=== PATIENT | male | born 1990 | race Caucasian/White ===

== ENCOUNTER 2018-01-31 09:01 | Emergency (ER) | payer OTHER ==
[~2018-01-31] VITALS: Ht 180.3 cm; Wt 108.1 kg
[2018-01-31 09:03] VITALS: TEMP 36.5; Ht 180.3 cm; Wt 108.1 kg
[2018-01-31] MEDS ORDERED: ONDANSETRON INJ 2 MG/ML 2 ML VIAL IV STA (09:20)
[2018-01-31] MEDS ORDERED: KETOROLAC TROMETHAMINE 30 MG/ML VIAL IV STA (09:20)
[2018-01-31] MEDS ORDERED: SODIUM CHLORIDE 0.9% 1000ML 1,000 ML IV STA (09:20)
[2018-01-31 09:38] LABS: BASO % 0.5 %; BASO ABS # 0.03 K/uL (0-0.2); EOS % 1.4 %; EOS ABS # 0.08 K/uL (0-0.5); HEMATOCRIT 43.3 % (42-52); HEMOGLOBIN 14.8 g/dL (14.0-18.0); IG# 0.02 K/uL (0.00-0.02); LYMPH % 25.1 %; LYMPH ABS # 1.47 K/uL (1.2-3.4); MEAN CELL VOLUME 82.8 fL (80-100); MEAN CORPUSCULAR HEMOGLOBIN 28.3 pg (25-34); MEAN CORPUSCULAR HGB CONC 34.2 g/dl (32-36); MONO % 8.2 %; MONO ABS # 0.48 K/uL (0.11-0.59); NEUT % 64.5 %; NEUT ABS # 3.77 K/uL (1.4-6.5); PLATELET COUNT 194 K/uL (130-400); RED CELL DISTRIBUTION WIDTH CV 12.9 % (11.5-14.5); WHITE BLOOD COUNT 5.85 K/uL (4.8-10.8)
[2018-01-31 09:47] LABS: ALBUMIN 4.1 gm/dl (3.4-5.0); CALCIUM 8.7 mg/dl (8.5-10.1); CREATININE 1.14 mg/dl (0.60-1.40); POTASSIUM 3.8 mmol/L (3.5-5.1)
[2018-01-31 09:50] LABS: TOTAL PROTEIN 7.8 gm/dl (6.4-8.2)
--- NOTE | 2018-01-31 10:42 | DIAGNOSTIC IMAGING REPORT ---
KUB CLINICAL HISTORY: l flank pain hxt stones nephrocalcinosis COMPARISON STUDY: No previous studies for comparison. FINDINGS: The soft tissues, psoas shadows, renal outlines and intestinal gas pattern appear normal. There is no evidence for bowel obstruction. No abnormal abdominal calcifications are seen. The kidneys and urinary tracts are affectively obscured by overlying bowel content. IMPRESSION: Nondiagnostic study of the urinary tracts due to overlying bowel content and air The above report was generated using voice recognition software. It may contain grammatical, syntax or spelling errors. Electronically signed by: Ronny Back M.D. 01/31/2018 10:40 AM Dictated Date/Time: 01/31/2018 10:39 AM
--- NOTE | 2018-01-31 10:52 | DIAGNOSTIC IMAGING REPORT ---
ULTRASOUND KIDNEYS AND BLADDER CLINICAL HISTORY: Left flank pain. COMPARISON STUDY: Abdominal CT dated 08/17/2014. TECHNIQUE: Real-time, grayscale, and color flow sonography of the kidneys and bladder is performed. Images are reviewed in the transverse and longitudinal planes. FINDINGS: Kidneys: The kidneys are normal in size and echotexture. The right kidney measures 10.9 cm in length and the left kidney measures 12.3 cm in length. There is mild to moderate left-sided hydronephrosis. No hydronephrosis is seen on the right. A nonobstructing calculus is suggested in the left lower pole. No shadowing calculi are seen on the right. There is no sonographic evidence of contour deforming renal mass lesion. No perinephric fluid is identified. Bladder: The bladder is normal in appearance. A 6 mm obstructing calculus is seen at the left vesicoureteral junction. Both ureteral jets were. Upper abdomen: Survey images of the liver show evidence of hepatomegaly and hepatic steatosis. IMPRESSION: 1. The kidneys are normal in size. 2. There is mild to moderate left hydroureteronephrosis. An obstructing calculus is seen at the left vesicoureteral junction. 3. An additional nonobstructing stone is suggested in the left lower pole. Electronically signed by: Amanuel Cornejo M.D. 01/31/2018 10:50 AM Dictated Date/Time: 01/31/2018 10:48 AM
[2018-01-31 10:55] VITALS: BP 150/90; PULSE 73; O2SAT 100
[2018-01-31] MEDS ORDERED: TAMS0.4C38 PO (11:26)
[2018-01-31] MEDS ORDERED: OXYC1TAB3 PO (11:26)
--- NOTE | 2018-01-31 13:38 | EMERGENCY ROOM VISIT NOTE ---
History Report prepared by Yudy: Reid Ozuna Under the Supervision of: Dr. Luther Simms D.O. First contact with patient: 09:08 Chief Complaint: KIDNEY STONE Stated Complaint: ABD PAIN,NAUSEA,HEMATURIA History of Present Illness The patient is a 27 year old male who presents to the Emergency Room with complaints of pain in the left flank and left lower abdominal quadrant that began at 0630, 3 hours ago. The patient states that his pain began as a "dull ache" and progressively worsened to a 5/10 in severity. No exacerbating or remitting factors. He has had this once before and felt extremely consistent with his previous kidney stones. Upon arrival to the ED the patient notes that his discomfort suddenly resolved, and now he only feels a "soreness." He also noticed some blood in the urine this morning, and is currently nauseous but has not vomited. No fevers. He denies any chest pain, shortness of breath, does admit to some nausea. Source of History: patient Onset: 3 hours [place] [place] Position: abdomen (LLQ), back (Left Flank) Symptom Intensity: 5/10 at worst Quality: ache, dull Timing: resolved Associated Symptoms: + nausea, No vomiting Review of Systems See HPI for pertinent positives & negatives. A total of 10 systems reviewed and were otherwise negative. Past Medical & Surgical Medical Problems: (1) Concussion W/O Coma (2) Otalgia Nos Family History Diabetes mellitus Social History Smoking Status: Never Smoker Occupation Status: employed Current/Historical Medications Scheduled Tamsulosin Hcl (Flomax), 0.4 MG PO DAILY Scheduled PRN Oxycodone Immediate Rel Tab (Roxicodone Ir), 5 MG PO Q6H PRN for Pain Allergies Coded Allergies: Penicillins (Verified Allergy, Unknown, 01/31/18) Physical Exam Vital Signs Date Time Temp Pulse Resp B/P (MAP) Pulse Ox O2 Delivery O2 Flow Rate FiO2 01/31/18 10:55 73 16 150/90 100 Room Air 01/31/18 09:03 36.5 86 18 155/100 99 Room Air Physical Exam GENERAL: Sitting up in bed, alert, well appearing, well nourished, no distress, non-toxic EYE EXAM: normal conjunctiva. OROPHARYNX: no exudate, no erythema, lips, buccal mucosa, and tongue normal and mucous membranes are moist NECK: supple, no nuchal rigidity, no adenopathy, non-tender LUNGS: Clear to auscultation. Normal chest wall mechanics HEART: no murmurs, S1 normal and S2 normal ABDOMEN: abdomen soft, non-tender, normo-active bowel sounds, no masses, no rebound or guarding. BACK: Back is symmetrical on inspection and there is no deformity, no midline tenderness, no CVA tenderness. SKIN: no rashes and no bruising UPPER EXTREMITIES: upper extremities are grossly normal. LOWER EXTREMITIES: No pitting edema. NEURO EXAM: Normal sensorium, cranial nerves II-XII grossly intact, normal speech, no gross weakness of arms, no gross weakness of legs. Medical Decision & Procedures ER Provider Diagnostic Interpretation: Radiology results as stated below per my review and the radiologist's interpretation: KUB CLINICAL HISTORY: l flank pain hxt stones nephrocalcinosis COMPARISON STUDY: No previous studies for comparison. FINDINGS: The soft tissues, psoas shadows, renal outlines and intestinal gas pattern appear normal. There is no evidence for bowel obstruction. No abnormal abdominal calcifications are seen. The kidneys and urinary tracts are affectively obscured by overlying bowel content. IMPRESSION: Nondiagnostic study of the urinary tracts due to overlying bowel content and air The above report was generated using voice recognition software. It may contain grammatical, syntax or spelling errors. Electronically signed by: Ronny Back M.D. 01/31/2018 10:40 AM Dictated Date/Time: 01/31/2018 10:39 AM ULTRASOUND KIDNEYS AND BLADDER CLINICAL HISTORY: Left flank pain. COMPARISON STUDY: Abdominal CT dated 08/17/2014. TECHNIQUE: Real-time, grayscale, and color flow sonography of the kidneys and bladder is performed. Images are reviewed in the transverse and longitudinal planes. FINDINGS: Kidneys: The kidneys are normal in size and echotexture. The right kidney measures 10.9 cm in length and the left kidney measures 12.3 cm in length. There is mild to moderate left-sided hydronephrosis. No hydronephrosis is seen on the right. A nonobstructing calculus is suggested in the left lower pole. No shadowing calculi are seen on the right. There is no sonographic evidence of contour deforming renal mass lesion. No perinephric fluid is identified. Bladder: The bladder is normal in appearance. A 6 mm obstructing calculus is seen at the left vesicoureteral junction. Both ureteral jets were. Upper abdomen: Survey images of the liver show evidence of hepatomegaly and hepatic steatosis. IMPRESSION: 1. The kidneys are normal in size. 2. There is mild to moderate left hydroureteronephrosis. An obstructing calculus is seen at the left vesicoureteral junction. 3. An additional nonobstructing stone is suggested in the left lower pole. Electronically signed by: Amanuel Cornejo M.D. 01/31/2018 10:50 AM Dictated Date/Time: 01/31/2018 10:48 AM Laboratory Results 01/31/18 09:15 Red Blood Count 5.23, Mean Corpuscular Volume 82.8, Mean Corpuscular Hemoglobin 28.3, Mean Corpuscular Hemoglobin Concent 34.2, Mean Platelet Volume 11.0, Neutrophils (%) (Auto) 64.5, Lymphocytes (%) (Auto) 25.1, Monocytes (%) (Auto) 8.2, Eosinophils (%) (Auto) 1.4, Basophils (%) (Auto) 0.5, Neutrophils # (Auto) 3.77, Lymphocytes # (Auto) 1.47, Monocytes # (Auto) 0.48, Eosinophils # (Auto) 0.08, Basophils # (Auto) 0.03 01/31/18 09:15 Test 01/31/18 09:10 01/31/18 09:15 Urine Color YELLOW Urine Appearance CLEAR (CLEAR) Urine pH 7.0 (4.5-7.5) Urine Specific [place] 1.016 (1.000-1.030) Urine Protein NEG (NEG) Urine Glucose (UA) NEG (NEG) Urine Ketones NEG (NEG) Urine Occult Blood 3+ (NEG) Urine Nitrite NEG (NEG) Urine Bilirubin NEG (NEG) Urine Urobilinogen NEG (NEG) Urine Leukocyte Esterase NEG (NEG) Urine WBC (Auto) 1-5 /hpf (0-5) Urine RBC (Auto) >30 /hpf (0-4) Urine Hyaline Casts (Auto) 1-5 /lpf (0-5) Urine Epithelial Cells (Auto) 5-10 /lpf (0-5) Urine Bacteria (Auto) NEG (NEG) White Blood Count 5.85 K/uL (4.8-10.8) Red Blood Count 5.23 M/uL (4.7-6.1) Hemoglobin 14.8 g/dL (14.0-18.0) Hematocrit 43.3 % (42-52) Mean Corpuscular Volume 82.8 fL (80-100) Mean Corpuscular Hemoglobin 28.3 pg (25-34) Mean Corpuscular Hemoglobin Concent 34.2 g/dl (32-36) Platelet Count 194 K/uL (130-400) Mean Platelet Volume 11.0 fL (7.4-10.4) Neutrophils (%) (Auto) 64.5 % Lymphocytes (%) (Auto) 25.1 % Monocytes (%) (Auto) 8.2 % Eosinophils (%) (Auto) 1.4 % Basophils (%) (Auto) 0.5 % Neutrophils # (Auto) 3.77 K/uL (1.4-6.5) Lymphocytes # (Auto) 1.47 K/uL (1.2-3.4) Monocytes # (Auto) 0.48 K/uL (0.11-0.59) Eosinophils # (Auto) 0.08 K/uL (0-0.5) Basophils # (Auto) 0.03 K/uL (0-0.2) RDW Standard Deviation 39.0 fL (36.4-46.3) RDW Coefficient of Variation 12.9 % (11.5-14.5) Immature Granulocyte % (Auto) 0.3 % Immature Granulocyte # (Auto) 0.02 K/uL (0.00-0.02) Anion Gap 6.0 mmol/L (3-11) Est Creatinine Clear Calc Drug Dose 121.7 ml/min Estimated GFR () 101.6 Estimated GFR (Non- 87.7 BUN/Creatinine Ratio 9.2 (10-20) Calcium Level 8.7 mg/dl (8.5-10.1) Total Bilirubin 0.4 mg/dl (0.2-1) Direct Bilirubin 0.1 mg/dl (0-0.2) Aspartate Amino Transf (AST/SGOT) 17 U/L (15-37) Alanine Aminotransferase (ALT/SGPT) 39 U/L (12-78) Alkaline Phosphatase 74 U/L (45-117) Total Protein 7.8 gm/dl (6.4-8.2) Albumin 4.1 gm/dl (3.4-5.0) Lipase 192 U/L (73-393) Laboratory results per my review. Medications Administered Medications (Trade) Dose Ordered Sig/Denae Route Start Time Stop Time Status Last Admin Dose Admin Sodium Chloride 1,000 ml @ 999 mls/hr Q1H1M STAT IV 01/31/18 09:20 01/31/18 10:20 DC 01/31/18 09:20 999 MLS/HR Ondansetron HCl (Zofran Inj) 4 mg NOW STAT IV 01/31/18 09:20 01/31/18 09:22 DC 01/31/18 09:33 4 MG Ketorolac Tromethamine (Toradol Inj) 10 mg NOW STAT IV 01/31/18 09:20 01/31/18 09:22 DC 01/31/18 09:36 10 MG ED Course ED COURSE: Vital signs were reviewed and showed hypertensive vitals. The patients medical record was reviewed The above diagnostic studies were performed and reviewed. ED treatments and interventions as stated above. 0911: The patient was evaluated in room B12B. A complete history and physical examination was performed. 0920: Ordered Toradol 10 mg IV, Zofran 4 mg IV, Sodium Chloride 1000 mL @ 999 mL /hr IV. 1129: Upon reevaluation, the patient is resting in bed.I discussed my findings with the patient and he understands and agrees with the treatment plan. Based on the patients age, coexisting illnesses, exam and lab findings the decision to treat as an outpatient was made. The patient remained stable while under my care. The patient appeared well at the time of discharge. Medical Decision Differential diagnosis: Etiologies such as renal colic, appendicitis, diverticulitis, mesenteric ischemia, aortic pathology, infections, inflammatory bowel disease, PUD, biliary pathology, UTI, as well as others were entertained. Patient is a 27-year-old male who presents the ER for left flank pain radiating into his left lower abdomen. Patient does have a history of kidney stones. CBC along with BMP, LFTs, bilirubin lipase was normal. UA with hematuria. No signs of infection. Ultrasound shows a stone at the left UVJ with mild hydronephrosis. Pain was controlled with Toradol. He was given fluids. He was also given Zofran. He felt significant better. He was discharged follow- up with urology as an outpatient. He was given OxyIR and Flomax. Discussed with Pt concerning signs and symptoms to watch out for. Pt was instructed to follow up with their PCP and discussed with the patient their option to return to the ED at anytime for persistent or worsening symptoms. The appropriate anticipatory guidance and out-patient management, including indications for return to the emergency department, were explained at length to the patient and understood. Medication Reconcilliation Current Medication List: was personally reviewed by me Blood Pressure Screening Patient's blood pressure: Elevated blood pressure Impression Primary Impression: Hydronephrosis Additional Impressions: Renal colic Hematuria Scribe Attestation The scribe's documentation has been prepared under my direction and personally reviewed by me in its entirety. I confirm that the note above accurately reflects all work, treatment, procedures, and medical decision making performed by me. Departure Information Dispostion Home / Self-Care Prescriptions Tamsulosin Hcl (FLOMAX) 0.4 Mg Cap 0.4 MG PO DAILY, #10 CAP Prov: Luther Simms, DO 01/31/18 Oxycodone Immediate Rel Tab (ROXICODONE IR) 5 Mg Tab 5 MG PO Q6H Y for Pain, #10 TAB Prov: Luther Simms, DO 01/31/18 Referrals No Doctor, Assigned (PCP) Forms HOME CARE DOCUMENTATION FORM, IMPORTANT VISIT INFORMATION Patient Instructions My [facility] Additional Instructions Please follow up with your primary care doctor with in the next 24 hours. Any worsening of your symptoms, please return to the ED immediately. This includes any fevers greater than 100.4, worsening pain, chest pain, shortness breath, persistent nausea, vomiting, unable to eat or drink, or any other concerning signs or symptoms from your standpoint. You were given medications during this visit that will inhibit your ability to drive, operate machinery and work. Please do NOT drive, operate machinery or work for the next 12hrs. You were also given a prescription for a narcotic. While taking this medication you should also not drive, operate machinery and or work. Please follow-up with urology as listed below within the next week. Again any fevers greater than 100.4 while having this pain you need to return immediately to the ER. Problem Qualifiers Primary Impression: Hydronephrosis Hydronephrosis type: unspecified Qualified Codes: N13.30 - Unspecified hydronephrosis Additional Impressions: Hematuria Hematuria type: unspecified type Qualified Codes: R31.9 - Hematuria, unspecified
== END 2018-01-31 11:38 | disposition home or self-care (01) ==
LOC: C.EDB 09:03
DX: N13.2 Hydronephrosis with renal and ureteral calculous obstruction (principal); N23 Unspecified renal colic; Z87.442 Personal history of urinary calculi; Z83.3 Family history of diabetes mellitus; Z88.0 Allergy status to penicillin

== ENCOUNTER 2018-02-15 22:04 | Emergency (ER) | payer OTHER ==
[~2018-02-15] VITALS: Ht 180.3 cm; Wt 95.1 kg
[~2018-02-15 22:04] MED LIST: OXYC1TAB3 PO
[2018-02-15 22:06] VITALS: TEMP 36.7; Ht 180.3 cm; Wt 95.1 kg
[2018-02-15] MEDS ORDERED: IBUPROFEN 200 MG TAB PO STA (22:29)
[2018-02-15] MEDS ORDERED: OXYMETAZOLINE HCL 0.05% NA SPR 15 ML BTL NAE ONE (22:30)
--- NOTE | 2018-02-15 22:30 | EMERGENCY ROOM VISIT NOTE ---
History Report prepared by Yudy: Swathi Fernandes Under the Supervision of: Dr. Chelsey Vela M.D. First contact with patient: 22:14 Chief Complaint: EAR PAIN Stated Complaint: EAR PAIN SORE THROAT DIFFICULTY History of Present Illness The patient is a 27 year old male who presents to the Emergency Room with complaints of constant right ear pain beginning 2 days ago. The patient reports having a sorethroat and states that it hurts to swallow. He denies having a fever. He states that his symptoms have been exacerbated due to seasonal allergies. He reports that he took Tylenol which slightly alleviated his pain. The patient reports a past medical history of kidney stones and ear infections but otherwise no other medical problems. He states that he takes Kailey for his allergies. Source of History: patient Onset: 2 days ago Position: ear (right) Quality: other (pain ) Timing: constant Associated Symptoms: + sorethroat, No fevers Note: additional symptom: pain with swallowing Review of Systems See HPI for pertinent positives & negatives. A total of 6 systems reviewed and were otherwise negative. Past Medical & Surgical Medical Problems: (1) Concussion W/O Coma (2) Otalgia Nos Family History Diabetes mellitus Social History Smoking Status: Never Smoker Marital Status: single Occupation Status: employed Current/Historical Medications Scheduled Cefdinir (Omnicef), 300 MG PO Q12H Fexofenadine Hcl (Kailey Allergy), 180 MG PO DAILY Allergies Coded Allergies: Penicillins (Verified Allergy, Unknown, 01/31/18) Physical Exam Vital Signs Date Time Temp Pulse Resp B/P (MAP) Pulse Ox O2 Delivery O2 Flow Rate FiO2 02/15/18 23:26 88 18 154/97 98 02/15/18 22:06 36.7 97 18 156/92 99 Room Air Physical Exam Vital signs reviewed. General: Well-appearing male, in no significant distress. HEENT: No scleral icterus, PERRLA, neck supple. Mild erythema to the edge of the TM of the right ear. Thick post-nasal drip. Atraumatic. No significant tenderness to palpation over the maxillary or frontal sinuses Cardiovascular: Regular rate and rhythm, no extra sounds. Pulmonary: Clear to auscultation bilaterally, normal work of breathing. Abdomen: Soft, nontender, nondistended, positive bowel sounds. Musculoskeletal: Atraumatic, no peripheral edema. Neurologic: Patient awake alert and oriented x 3 Skin: Warm, dry, no rash Medical Decision & Procedures Medications Administered Medications (Trade) Dose Ordered Sig/Denae Route Start Time Stop Time Status Last Admin Dose Admin Oxymetazoline HCl (Afrin 0.05% Nasal [place]) 2 sprays NOW ONCE GREER 02/15/18 22:30 02/15/18 22:31 DC 02/15/18 22:30 2 SPRAYS Ibuprofen (Advil Tab) 200 mg NOW STAT PO 02/15/18 22:29 02/15/18 22:31 DC 02/15/18 22:29 200 MG ED Course 2223: Past medical records reviewed. The patient was evaluated in room A3. A complete history and physical examination was performed. 2228: Ordered Advil Tab 200 mg PO. 2229: Ordered Oxymetazoline HCl 2 sprays GREER. 2299: Upon reevaluation, the patient appeared to have improvement of his symptoms. He verbalized agreement of the treatment plan. He was discharged home. Medical Decision The patient is a 27 year old male who presents to the ED with complaints of right ear pain. Differentials include URI, otitis media, sinusitis, and strep pharyngitis. This patient was evaluated and appeared to be an no significant distress. Physical examination is consistent with postnasal drip. The right TM does have some mild erythema at the very edge however there is no bulging or effusion identified. Posterior oropharynx is clear other than the cobblestoning and mucus from the sinuses. Rapid strep swab was obtained and is negative. The patient was given Afrin nasal spray for his congestion. He did take 400 mg of ibuprofen prior to arrival, was given an additional 200 mg p.o. Patient has been 48 hours since the patient became ill, I suspect it is viral in etiology. The patient feels he may have a sinus infection. He was given a prescription for Omnicef to be started in 3-4 days if symptoms are not improving. He was encouraged to continue ibuprofen and decongestants such as Sudafed. He will continue Afrin as directed for 3 days. He will follow-up with his PCP and return to the ER for worsening symptoms or any medical concerns. Medication Reconcilliation Current Medication List: was personally reviewed by me Blood Pressure Screening Patient's blood pressure: Elevated blood pressure Blood pressure disposition: Elevated BP felt to be situational Impression Primary Impression: URI (upper respiratory infection) Additional Impression: Post-nasal drip Scribe Attestation The scribe's documentation has been prepared under my direction and personally reviewed by me in its entirety. I confirm that the note above accurately reflects all work, treatment, procedures, and medical decision making performed by me. Departure Information Dispostion Home / Self-Care Prescriptions Cefdinir (Omnicef) 300 Mg Cap 300 MG PO Q12H, #20 CAP Prov: Chelsey Vela M.D. 02/15/18 Referrals No Doctor, Assigned (PCP) Forms HOME CARE DOCUMENTATION FORM, IMPORTANT VISIT INFORMATION, WORK / SCHOOL INSTRUCTIONS Patient Instructions My [facility] Additional Instructions Diagnosis: URI Tylenol 650 mg every 6 hours as needed for pain, fever. Ibuprofen 600 mg every 6 hours as needed for pain, fever. Afrin nasal 2 sprays in each nostril every 12 hours as needed for congestion, 3 days only. In 3 days, if symptoms persist or worsen, fever or pain in sinuses, begin Omnicef 300 mg twice daily for 10 days. Follow up with your doctor this week for reevaluation. Return to the ED for worsening of symptoms or any medical concerns. Problem Qualifiers
[2018-02-15] MEDS ORDERED: FEXO1TAB49 PO (22:38)
[2018-02-15] MEDS ORDERED: CEFD1CAP14 PO (23:02)
[2018-02-15 23:26] VITALS: BP 154/97; PULSE 88; O2SAT 98
== END 2018-02-15 23:28 | disposition home or self-care (01) ==
LOC: C.EDB 22:05 → C.EDA 23:28
DX: J06.9 Acute upper respiratory infection, unspecified (principal); R09.82 Postnasal drip; Z87.820 Personal history of traumatic brain injury; Z88.0 Allergy status to penicillin; Z83.3 Family history of diabetes mellitus

== ENCOUNTER 2018-06-05 13:09 | Emergency (ER) | payer OTHER ==
[~2018-06-05] VITALS: Ht 180.3 cm; Wt 103.1 kg
[~2018-06-05 13:09] MED LIST changes: +CEFD1CAP14 PO; +FEXO1TAB49 PO; -OXYC1TAB3 PO
[2018-06-05 13:14] VITALS: TEMP 36.7; Ht 180.3 cm; Wt 103.1 kg
--- NOTE | 2018-06-05 14:07 | EMERGENCY ROOM VISIT NOTE ---
History First contact with patient: 13:23 Chief Complaint: CHEMICAL EXPOSURE Stated Complaint: POSSIBLE EXPOSURE TO CHEMICAL Nursing Triage Summary: pt here for testing of chemical exposure History of Present Illness The patient is a 28 year old male who presents to the Emergency Room with complaints of a possible chemical exposure that occurred today at work. 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 He was taking care of the patient in the back of an ambulance. 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 He currently denies any symptoms. Review of Systems 10 system review performed and negative unless noted in HPI or below Past Medical/Surgical History Medical Problems: (1) Concussion W/O Coma (2) Otalgia Nos Family History Diabetes mellitus Social History Smoking Status: Never Smoker Marital Status: single Occupation Status: employed Current/Historical Medications Scheduled Cefdinir (Omnicef), 300 MG PO Q12H Fexofenadine Hcl (Kailey Allergy), 180 MG PO DAILY Physical Exam Vital Signs Date Time Temp Pulse Resp B/P (MAP) Pulse Ox O2 Delivery O2 Flow Rate FiO2 06/05/18 14:17 75 18 146/96 98 Room Air 06/05/18 13:14 36.7 79 18 154/99 98 Room Air Physical Exam VITALS: Vitals are noted on the nurse's note and reviewed by myself. Vital signs stable. GENERAL: 28-year-old male, in no acute distress, nondiaphoretic, well-developed well-nourished. SKIN: The skin was without rashes, erythema, edema, or bruising. HEAD: Normocephalic atraumatic. EYES: . Conjunctivae without injection, sclerae without icterus. Extraocular movements intact. MOUTH: Mucous membranes moist. HEART: Regular rate and rhythm without murmurs gallops or rubs. LUNGS: Clear to auscultation bilaterally without wheezes, rales or rhonchi. No accessory muscle use. MUSCULOSKELETAL: No muscle atrophy, erythema, or edema noted. Strength 5/5 throughout. NEURO: Patient was alert and oriented to person place and time. Normal sensation to touch. No focal neurological deficits. Medical Decision & Procedures ED Course The patient was seen and examined They were observed for approximately 30 minutes Discharge instructions were reviewed, and they were discharged in good condition Medical Decision Differential diagnosis: Possible chemical/drug exposure This patient is a 28-year-old male that presents to the emergency department for possible drug or chemical exposure while at work. The patient has remained asymptomatic for several hours. I believe he is stable to be discharged home. He will follow-up with his PCP as needed, and return to the ED with concerning symptoms. This chart was completed in part utilizing [employer] Voice Recognition software. Attempts were made to minimize the grammatical errors, random word insertions, pronoun errors and incomplete sentences. Any formal questions or concerns about the content, text or information contained within the body of this dictation should be directly addressed to the provider for clarification. Impression Primary Impression: Chemical exposure Departure Information Dispostion Home / Self-Care Condition GOOD Referrals No Doctor, Assigned (PCP) Patient Instructions My [facility] Additional Instructions Please drink plenty of fluids Resume normal activity Do not hesitate to return to the emergency department with any new, worsening or concerning symptoms It was a pleasure participating in your care today
[2018-06-05 14:17] VITALS: BP 146/96; PULSE 75; O2SAT 98
== END 2018-06-05 14:28 | disposition home or self-care (01) ==
LOC: C.EDB 13:10 → C.EDD 14:28
DX: Z04.2 Encounter for examination and observation following work accident (principal); Z77.098 Contact with and (suspected) exposure to other hazardous, chiefly nonmedicinal, chemicals

== ENCOUNTER 2019-09-17 17:35 | Inpatient (IN) ==
[2019-09-17] MEDS ORDERED: ONDANSETRON INJ 2 MG/ML 2 ML VIAL IV STA ×2 (17:53→19:00)
[2019-09-17] MEDS ORDERED: KETOROLAC TROMETHAMINE 15 MG/ML VIAL IV ONE (17:53)
[2019-09-17] MEDS ORDERED: SODIUM CHLORIDE 0.9% 1000ML 2,000 ML IV ONE (17:53)
[2019-09-17 18:19] LABS: Basophils # (auto) 0.03 K/uL (0-0.2); Basophils % (auto) 0.4 %; Eosinophils # (auto) 0.15 K/uL (0-0.5); Eosinophils % (auto) 1.9 %; Hematocrit (blood only) 41.3 % (42-52); Hemoglobin 14.6 g/dL (14.0-18.0); Immature Granulocytes # (auto) 0.02 K/uL (0.00-0.02); Immature Granulocytes % (auto) 0.3 %; Lymphocytes # (auto) 2.26 K/uL (1.2-3.4); Lymphocytes % (auto) 28.3 %; Mean Corpuscular Hgb Conc 35.4 g/dL (32-36); Mean Corpuscular Volume 82.1 fL (80-100); Mean Platelet Volume 10.9 fL (7.4-10.4); Monocytes # (auto) 0.71 K/uL (0.11-0.59); Monocytes % (auto) 8.9 %; Neutrophils # (auto) 4.83 K/uL (1.4-6.5); Neutrophils % (auto) 60.2 %; Platelet Count 185 K/uL (130-400); RDW Coefficient of Variation 12.7 % (11.5-14.5); Red Blood Count 5.03 M/uL (4.7-6.1)
[2019-09-17 18:25] LABS: Appearance Urine Clear (Clear); Bacteria Urine Automated Negative (Negative); Bilirubin Urine Negative (Negative); Blood Urine Negative (Negative); Color Urine Yellow; Glucose Urine UA Negative (Negative); Ketones Urine Trace (Negative); Leukocyte Esterase Urine Negative (Negative); Nitrite Urine Negative (Negative); Protein Urine Trace (Negative); RBC Urine Automated 0-4 /hpf (0-4); Specific Gravity Urine 1.026 (1.000-1.030); Urobilinogen Urine Negative (Negative); WBC Urine Automated 0 /hpf (0-5); pH Urine 5.5 (4.5-7.5)
--- NOTE | 2019-09-17 18:36 | Ultrasound Report ---
US renal/blad retro comp HISTORY: Flank pain r flank pain COMPARISON: None. FINDINGS: Right kidney: Moderate right renal hydronephrosis. Moderate fullness proximal right ureter. Normal co rticomedullary differentiation and cortical thickness. Left kidney: Maximum dimension 12 cm. No evidence for hydronephrosis. Normal corticomedullary differ entiation and cortical thickness. Bladder: No bladder wall thickening. The bilateral ureteral jets were identified. IMPRESSION: 1. Mild right renal hydroureteronephrosis. 2. Several additional punctate nonobstructing renal cortical calcifications. The above report was generated using voice recognition software. It may contain grammatical, syntax or spelling errors. Electronically signed by: Ronny Back M.D. 09/17/2019 6:35 PM
[2019-09-17 18:40] LABS: Albumin Level 4.2 gm/dl (3.4-5.0); BUN Creatinine Ratio 14.2 (10-20); Calcium 8.7 mg/dl (8.5-10.1); Creatinine Clr Calc Pharmacy 122.1 ml/min; Est GFR (African American) 103.4; Est GFR (Non-African American) 89.3; Potassium 3.9 mmol/L (3.5-5.1)
[2019-09-17 18:43] LABS: Albumin Globulin Ratio 1.2 (0.9-2); Bilirubin,Total 0.3 mg/dl (0.2-1); Globulin 3.6 gm/dl (2.5-4.0); Total Protein 7.8 gm/dl (6.4-8.2)
--- NOTE | 2019-09-17 18:44 | XRay Report ---
XR KUB/Abdomen 1 view CLINICAL HISTORY: flank pain pain COMPARISON STUDY: 01/31/2018 FINDINGS: The soft tissues, psoas shadows, renal outlines and intestinal gas pattern appear normal. T here is no evidence for bowel obstruction. No abnormal abdominal calcifications are seen. IMPRESSION: Normal study. The above report was generated using voice recognition software. It may contain grammatical, syntax or spelling errors. Electronically signed by: Ronny Back M.D. 09/17/2019 6:43 PM
[2019-09-17] MEDS ORDERED: MoRPHine SULFATE 10 MG/ML CARP/VIAL IV STA ×2 (19:00→19:20)
[2019-09-17] MEDS ORDERED: HYDROmorphone INJ 0.5 MG/0.5 ML SYR IV STA (19:56)
[2019-09-17] MEDS ORDERED: POLYETHYLENE (MIRALAX) 17 GM PACK PO PRN ×2 (20:40→21:32)
[2019-09-17] MEDS ORDERED: ACETAMINOPHEN 325 MG TAB PO PRN (20:40)
[2019-09-17] MEDS ORDERED: ONDANSETRON INJ 2 MG/ML 2 ML VIAL IV PRN (20:40)
--- NOTE | 2019-09-17 21:18 | History & Physical Report ---
Date of Service September 17, 2019 Assessment & Plan (1) Renal colic: Renal Colic Likely secondary to either radiolucent stone or stricture Will order noncontrast CT to further evaluate as stone not visualized Urology, Dr. Ontiveros consulted for active management Patient NPO, normal saline 100 mls/hour Dilaudid .5 mg q2h prn tamsulosin .4 mg qam BMP and CBC ordered for morning. GERD Famotidine 20 mg qam for his home ranitidine which is on shortage here Depression Stable will benefit from outpatient follow up F/E/N: NPO NSS 100 mls/hour DVT PPx: None ordered based on age and mobility Dispo: Med/Surg Urology consulted, possible intervention tomorrow. (2) Hydronephrosis: History of Present Illness Chief Complaint: Flank Pain Primary Care Provider: NO PCP Jl Rojas is a 29 year old man with a past medical history significant for multiple episodes of renal colic, GERD and depression here today with flank pain, he tells me he woke up this morning in his usual state of health and as the morning started began to feel something was off. Had increased urinary frequency and slowly began to develop right sided flank pain and nausea. Pain became much worse as day went on. In past ibuprofen and aleve helped but did not touch it today. On presentation to the emergency department patient has been hypertensive and borderline tachycardic, otherwise vitals have been stable and he is breathing comfortably on room air. His labwork and urinalysis have been fairly unremarkable apart from some mild hyperglycemia. He received toradol and was sent to get a KUB. Toradol did not touch his pain and KUB was negative. Renal U/S was ordered showing mild right sided hydroureteronephrosis. No clear visualization of stone. Morphine worked briefly for him, but pain returned in minutes. He is not on dilaudid .5 mg q2h and is tolerating his pain at about a 4/10. He reports he has been well recently, his last episode with renal colic was back in January 2018. He tells me he stays well hydrated and drinks mostly water but also drinks a large amount of iced tea. He has no PCP currently and hasn't been to medical care in some time. His depression is currently well controlled, he has been on abilify and celexa briefly previously but now is just seeing a counselor. He denies any SI/HI. Allergies Allergy/AdvReac Type Severity Reaction Status Date / Time Penicillins Allergy Unknown Verified 09/17/19 18:07 Home Medications Home Medications Medication Instructions Recorded Confirmed Type ranitidine HCl [Zantac] 150 mg PO HS 09/17/19 09/17/19 History ciprofloxacin HCl 500 mg PO BID #6 tab 09/19/19 Rx ondansetron 4 mg PO Q8H PRN 5 Days #20 tab 09/19/19 Rx Past Med/Surg History Medical History Renal colic (Acute) Social History Preferred Language: Czech Communication Ability: Effective Chair Upholsterer Required: No Beliefs That Will Affect Care: None Current Living Situation: Other Current Living Situation Comment: lives with girlfriend Feels Safe at Home: Yes Smoking Status: Never smoker Hx Alcohol Use: Yes Hx Substance Use: No Review of Systems Constitutional: no fever, no chills, no sweats and no weakness Eyes: no problem reported Ear, Nose, Mouth, Throat: no problem reported Respiratory: no cough, no dyspnea and no wheezing Cardiovascular: no chest pain, no dyspnea, no palpitations, no lightheadedness, no syncope and no calf pain Gastrointestinal: + abdominal pain (Flank Pain) and + nausea; no vomiting, no constipation and no diarrhea/loose stools Genitourinary: + difficulty urinating (Feels like incomplete emptying) and + urinary frequency Integumentary: no rash Physical Exam Constitutional: well developed, well nourished, + acute distress (moderate distress, clearly uncomfortable) and + obese Respiratory: normal respiratory effort, lungs clear to auscultation Cardiovascular: Rate/Rhythm: regular rhythm and + tachycardic Heart Sounds: no click, no gallop, no murmur and no cardiac rub Gastrointestinal (Abdomen): Percussion/Palpation: abdomen soft; abdomen nont patricio, no hepatosplenomegaly and no abdominal mass Skin: no rashes, warm and dry Results & Data Vital Signs (Past 12 Hours) Vital Signs Temp Pulse Pulse Resp BP BP Pulse Ox 09/17/19 20:12 103 H 17 156/109 H 99 09/17/19 20:08 99 09/17/19 19:16 96 09/17/19 19:06 94 H 20 163/102 H 100 09/17/19 17:37 36.3 C L 74 20 191/108 H 100 Supervising Physician Co-Signing Physician Notes Attending addendum: I have physically seen this patient, have supervised the medical residents activities, and agree with the H&P unless as otherwise noted. Assessment and Plan: Right ureteral colic/right hydroureteronephrosis- Admission to medical surgical floor. NPO IV fluids Follow urine culture and sensitivities. Ceftriaxone 1 g IV daily. Tamsulosin 0.4 mg p.o. every evening. Dilaudid 0.5 mg IV every 2 hours as needed. Follow serial laboratories CBC with differential and BMP. Consult urology. Remaining orders and notations as noted. Resident Activity Tracking Resident Involvement: Resident Care Provided Care Provided: Adult Hospital Medicine (1) Hydronephrosis Hydronephrosis type: unspecified Qualified Code(s): N13.30 - Unspecified hydronephrosis
[2019-09-17] MEDS ORDERED: SODIUM CHLORIDE 0.9% 500 ML IV SCH (21:32)
[2019-09-17] MEDS ORDERED: FAMOTIDINE 20 MG TAB PO ONE (21:32)
[2019-09-17] MEDS ORDERED: ALUMINUM/MAGNESIUM SUSP 30 ML UDC PO PRN (21:32)
[2019-09-17] MEDS: SODIUM CHLORIDE 0.9% 1000ML 1,000 ML IV SCH (21:56)
--- NOTE | 2019-09-17 22:29 | CT Scan Report ---
CT abd pelvis wo con CT DOSE: 1064.46 mGy.cm HISTORY: Obstruction. Flank pain. Hydroureteronephrosis TECHNIQUE: Multiaxial CT images of the abdomen and pelvis were performed without contrast. A dose lo wering technique was utilized adhering to the principles of ALARA. COMPARISON STUDY: 08/17/2014. Ultrasound 09/17/2019 FINDINGS: Lung bases are clear. Liver spleen and pancreas are unremarkable. There is right hydroureteronephrosis. There are several nonobstructing small renal cortical calcifica tions in the right as well as left. There is a 3 mm obstructing calculus distal right ureter proximal to the right ureteral vesicle junct ion. Left kidney shows mild fullness of the renal pelvis. Several nonobstructing cortical calcifications a re present. The prominence of the renal pelvises diminished compared to the prior study and may be on a congenital basis. The bowel pattern is nonobstructive. The appendix is normal. IMPRESSION: 1. Obstructing calculus distal right ureter measuring 3 mm. 2. This is slightly proximal to the right ureterovesical junction. 3. Moderate right hydroureteronephrosis. 4. Bilateral nonobstructing additional nephrocalcinosis. 5. Normal appendix. The above report was generated using voice recognition software. It may contain grammatical, syntax or spelling errors. Electronically signed by: Ronny Back M.D. 09/17/2019 10:27 PM
[2019-09-17] MEDS: HYDROmorphone INJ 0.5 MG/0.5 ML SYR IV PRN (23:11)
--- NOTE | 2019-09-17 23:15 | Emergency Department Note ---
Entered by Cristel Montalvo acting as a scribe for Luther Simms DO History of Present Illness General Chief complaint: Abdominal Pain Stated complaint: KIDNEY STONE Source: patient History of Present Illness Provider complaint: abdominal pain Onset (ago): week(s) 1 Location: abdomen and right (lower ) Severity: similar to prior episodes Pain Consistency: + other (worsening) Maximum Pain Intensity: 7 Associated symptoms: + nausea/vomiting (+nausea, -vomiting) and + other (- hematuria, +back pain, +urinary retention) The patient is a 29 year old male who presents to the Emergency Room with complaints of worsening right lower abdominal pain for the past week. Patient notes that the pain feels exact like his previous kidney stones. He has had a total of 2 previous stones. Pain is focal in the right lower back as sharp st abbing 10 out of 10 he does have some in the right front. He also admits to nausea. He reports that he has tried to urinate, but cannot. He denies any vomiting or hematuria. He notes that his last bowel movement was earlier today which was normal. No other exacerbating or remitting factors. Home Medications Home Medications Medication Instructions Recorded Confirmed Type ranitidine HCl [Zantac] 150 mg PO HS 09/17/19 09/17/19 History Allergies Allergy/AdvReac Type Severity Reaction Status Date / Time Penicillins Allergy Unknown Verified 09/17/19 18:07 Past Med/Surg History Medical History Renal colic (Acute) Social History Preferred Language: Samoan Communication Ability: Effective Rug Dry Room Attendant Required: No Beliefs That Will Affect Care: None Current Living Situation: Other Current Living Situation Comment: lives with girlfriend Other Information That Helps Us Care for You: Yes Feels Safe at Home: Yes Safety Concerns: Feels Safe At This Time Smoking Status: Never smoker Hx Alcohol Use: Yes Hx Substance Use: No Review of Systems See HPI for pertinent positives & negatives. and A total of 10 systems reviewed and were otherwise negative Physical Exam Vital Signs Vital Signs - 24 hr 09/17/19 17:37 09/17/19 19:06 09/17/19 19:16 Temperature 36.3 C L Temperature Source Oral Pulse Rate 74 Pulse Rate [Finger] 94 H Respiratory Rate 20 20 Respiratory Effort / Characteristics Non-Labored Respiratory Depth Normal Respiratory Pattern Regular Blood Pressure 191/108 H Blood Pressure [Right Arm] 163/102 H Blood Pressure Mean 135 Blood Pressure Mean [Right Arm] 122 Blood Pressure Position Sitting Pulse Oximetry 100 100 96 Oxygen Delivery Method Room Air Room Air Room Air Sepsis Recent Fever Within 48 Hours No Sepsis New/Unexplained Change in Mental Status No Sepsis Action Taken by Nursing No Action Required 09/17/19 20:08 09/17/19 20:12 Temperature Temperature Source Pulse Rate Pulse Rate [Finger] 103 H Respiratory Rate 17 Respiratory Effort / Characteristics Respiratory Depth Respiratory Pattern Blood Pressure Blood Pressure [Right Arm] 156/109 H Blood Pressure Mean Blood Pressure Mean [Right Arm] 124 Blood Pressure Position Pulse Oximetry 99 99 Oxygen Delivery Method Room Air Room Air Sepsis Recent Fever Within 48 Hours Sepsis New/Unexplained Change in Mental Status Sepsis Action Taken by Nursing GENERAL: laying in bed, holding right flank, uncomfortable appearing EYE EXAM: normal conjunctiva OROPHARYNX: no exudate, no erythema, lips, buccal mucosa, and tongue normal and mucous membranes are moist NECK: supple, no nuchal rigidity, no adenopathy, non-tender LUNGS: Clear to auscultation. Normal chest wall mechanics HEART: no murmurs, S1 normal and S2 normal ABDOMEN: abdomen soft, non-tender, normo-active bowel sounds, no masses, no rebound or guarding. BACK: Back is symmetrical on inspection and there is no deformity, no midline tenderness, no CVA tenderness. SKIN: no rashes and no bruising UPPER EXTREMITIES: upper extremities are grossly normal. LOWER EXTREMITIES: No pitting edema. NEURO EXAM: Normal sensorium, cranial nerves II-XII grossly intact, normal speech, no gross weakness of arms, no gross weakness of legs. Course Course ED COURSE: Vital signs were reviewed and showed hypertensive. The patients medical record was reviewed The above diagnostic studies were performed and reviewed. ED treatments and interventions as stated above. 1751: The patient was evaluated in room B5. A complete history and physical examination was performed. 1919: I reevaluated the patient and he is requesting more pain medication. 1955: I reevaluated the patient and he is in more pain. 2034: I discussed the patient's case with Dr. Abdi- [facility], he will accept the patient for further evaluation. 2044: Upon reevaluation, the patient is resting comfortably. I discussed my findings with the patient and he understands and agrees with the treatment plan. Based on the patients age, coexisting illnesses, exam and lab findings the decision to treat as an inpatient was made. The patient remained stable while under my care. The patient will be evaluated for further management. Administered Medications Hydromorphone HCl (Dilaudid) 0.5 mg IV Q2H PRN PRN Reason: Pain Stop: 10/01/19 21:31 Last Admin: 09/17/19 23:11 Dose: 0.5 mg Documented by: [id number] Sodium Chloride (Nss 1000ml) 1,000 mls @ 100 mls/hr IV .Q10H JAMESON Stop: 10/17/19 21:59 Last Admin: 09/17/19 21:56 Dose: 100 mls/hr Documented by: [id number] Discontinued Medications Famotidine (Pepcid) 20 mg PO DAILY ONE Stop: 09/17/19 21:33 Last Admin: 09/17/19 22:45 Dose: 20 mg Documented by: [id number] Hydromorphone HCl (Dilaudid) 0.5 mg IV NOW STA Stop: 09/17/19 19:57 Last Admin: 09/17/19 20:09 Dose: 0.5 mg Documented by: [id number] Sodium Chloride (Nss 1000ml) 2,000 mls @ 999 mls/hr IV .Q2H1M ONE Stop: 09/17/19 19:53 Last Infusion: 09/17/19 20:15 Dose: 0 mls/hr Documented by: [id number] Admin: 09/17/19 18:14 Dose: 999 mls/hr Documented by: [id number] Sodium Chloride (Nss) 500 mls @ 100 mls/hr IV .Q5H JAMESON Stop: 10/17/19 21:31 Last Admin: 09/17/19 22:07 Dose: Not Given Documented by: [id number] Ketorolac Tromethamine (Toradol) 30 mg IV NOW ONE Stop: 09/17/19 17:54 Last Admin: 09/17/19 18:14 Dose: 30 mg Documented by: [id number] Morphine Sulfate (Morphine Sulfate) 6 mg IV NOW STA Stop: 09/17/19 19:01 Last Admin: 09/17/19 19:05 Dose: 6 mg Documented by: [id number] Morphine Sulfate (Morphine Sulfate) 6 mg IV NOW STA Stop: 09/17/19 19:21 Last Admin: 09/17/19 19:31 Dose: 6 mg Documented by: [id number] Ondansetron HCl (Zofran) 4 mg IV NOW STA Stop: 09/17/19 17:54 Last Admin: 09/17/19 18:14 Dose: 4 mg Documented by: [id number] Ondansetron HCl (Zofran) 4 mg IV NOW STA Stop: 09/17/19 19:01 Last Admin: 09/17/19 19:05 Dose: 4 mg Documented by: [id number] Medical Decision Making Differential Diagnosis Differential diagnosis: Etiologies such as renal colic, appendicitis, diverticulitis, mesenteric ischemia, aortic pathology, infections, inflammatory bowel disease, PUD, biliary pathology, UTI, as well as others were entertained. Medical Records Attestation: I reviewed the patient's medical records. Home Medications Current Medication List: was personally reviewed by me Laboratory Data Attestation: I reviewed the patient's lab results. Result diagrams: 09/17/19 18:04 09/17/19 18:04 Lab Results 09/17/19 09/17/19 09/17/19 Range/Units 18:04 18:04 18:05 WBC 8.00 (4.8-10.8) K/uL RBC 5.03 (4.7-6.1) M/uL Hgb 14.6 (14.0-18.0) g/dL Hct 41.3 L (42-52) % MCV 82.1 (80-100) fL MCH 29.0 (25-34) pg MCHC 35.4 (32-36) g/dL RDW Std Deviation 38.0 (36.4-46.3) fL RDW Coeff of Adalid 12.7 (11.5-14.5) % Plt Count 185 (130-400) K/uL MPV 10.9 H (7.4-10.4) fL Immature Gran % (Auto) 0.3 % Neut % (Auto) 60.2 % Lymph % (Auto) 28.3 % [place] % (Auto) 8.9 % Eos % (Auto) 1.9 % Baso % (Auto) 0.4 % Immature Gran # (Auto) 0.02 (0.00-0.02) K/uL Neut # (Auto) 4.83 (1.4-6.5) K/uL Lymph # (Auto) 2.26 (1.2-3.4) K/uL [place] # (Auto) 0.71 H (0.11-0.59) K/uL Eos # (Auto) 0.15 (0-0.5) K/uL Baso # (Auto) 0.03 (0-0.2) K/uL Sodium 137 (136-145) mmol/L Potassium 3.9 (3.5-5.1) mmol/L Chloride 108 H (98-107) mmol/L Carbon Dioxide 23 (21-32) mmol/L Anion Gap 6.0 (3-11) BUN 16 (7-18) mg/dl Creatinine 1.11 (0.6-1.4) mg/dl Est Cr Clr Drug Dosing 122.1 ml/min Est GFR ( Amer) 103.4 Est GFR (Non-Af Amer) 89.3 BUN/Creatinine Ratio 14.2 (10-20) Glucose 123 H (70-99) mg/dl Calcium 8.7 (8.5-10.1) mg/dl Total Bilirubin 0.3 (0.2-1) mg/dl AST 16 (15-37) U/L ALT 34 (12-78) U/L Alkaline Phosphatase 89 (45-117) U/L Total Protein 7.8 (6.4-8.2) gm/dl Albumin 4.2 (3.4-5.0) gm/dl Globulin 3.6 (2.5-4.0) gm/dl Albumin/Globulin Ratio 1.2 (0.9-2) Lipase 174 (73-393) U/L Urine Color Yellow Urine Appearance Clear (Clear) Urine pH 5.5 (4.5-7.5) Ur Specific [place] 1.026 (1.000-1.030) Urine Protein Trace H (Negative) Urine Glucose (UA) Negative (Negative) Urine Ketones Trace H (Negative) Urine Blood Negative (Negative) Urine Nitrite Negative (Negative) Urine Bilirubin Negative (Negative) Urine Urobilinogen Negative (Negative) Ur Leukocyte Esterase Negative (Negative) Urine WBC (Auto) 0 (0-5) /hpf Urine RBC (Auto) 0-4 (0-4) /hpf U Hyaline Cast (Auto) 1-5 (0-5) /lpf U Epithel Cells (Auto) 5-10 H (0-5) /lpf Urine Bacteria (Auto) Negative (Negative) Imaging Data Radiologist's Impression: Radiology results as stated below per my review and the radiologist's interpretation: XR KUB/Abdomen 1 view CLINICAL HISTORY: flank pain pain COMPARISON STUDY: 01/31/2018 FINDINGS: The soft tissues, psoas shadows, renal outlines and intestinal gas pattern appear normal. There is no evidence for bowel obstruction. No abnormal abdominal calcifications are seen. IMPRESSION: Normal study. The above report was generated using voice recognition software. It may contain grammatical, syntax or spelling errors. Electronically signed by: Ronny Back M.D. 09/17/2019 6:43 PM US renal/blad retro comp HISTORY: Flank pain r flank pain COMPARISON: None. FINDINGS: Right kidney: Moderate right renal hydronephrosis. Moderate fullness proximal right ureter. Normal corticomedullary differentiation and cortical thickness. Left kidney: Maximum dimension 12 cm. No evidence for hydronephrosis. Normal corticomedullary differentiation and cortical thickness. Bladder: No bladder wall thickening. The bilateral ureteral jets were identified. IMPRESSION: 1. Mild right renal hydroureteronephrosis. 2. Several additional punctate nonobstructing renal cortical calcifications. The above report was generated using voice recognition software. It may contain grammatical, syntax or spelling errors. Electronically signed by: Ronny Back M.D. 09/17/2019 6:35 PM Blood Pressure Blood Pressure Findings: Elevated blood pressure Blood Pressure Disposition: further management by hospitalist GUALBERTO Narrative Patient is a 29-year-old male who presents the ER for right flank pain. History of renal colic and he notes this feels similar. He has had some intermittent back pain for the past several days but it started this morning. Right back and right flank. Sharp stabbing in nature. Vitals show that he is hypertensive. Labs show no significant leukocytosis or anemia. BMP with a slightly elevated chloride. Glucose was slightly elevated as well at 123. LFTs bilirubin lipase was unremarkable. UA was clean. KUB was unremarkable. Renal ultrasound shows mild right-sided hydronephrosis. Patient was given IV fluids, IV Toradol, IV morphine x2 doses and IV Dilaudid. Still had persistent pain. He was updated bedside discussed with the hospitalist for observation secondary to renal colic and hydronephrosis and pain control. Impression & Plan Renal colic, Hydronephrosis Discharge Plan Visit Data *Final* Discharge Date/Time: 09/17/19 21:35 Chief Complaint: Abdominal Pain Stated Complaint: KIDNEY STONE ED Provider: Luther Simms Discharge Problem: Renal colic, Hydronephrosis Patient Disposition: Admitted As Inpatient Discharge Instructions Interventions: ED Discharge Assessment Last Done: 09/17/19 21:35 Discharge Problem: Hydronephrosis Qualifiers: Hydronephrosis type: unspecified Qualified Code(s): N13.30 - Unspecified hydronephrosis The scribe's documentation has been prepared under my direction and personally reviewed by me in its entirety. I confirm that the note above accurately refl ects all work, treatment, procedures, and medical decision making performed by me.
[2019-09-18] MEDS: HYDROmorphone INJ 0.5 MG/0.5 ML SYR IV PRN ×5 (03:55→21:15)
[2019-09-18] MEDS: ONDANSETRON INJ 2 MG/ML 2 ML VIAL IV PRN ×2 (03:55→16:05)
[2019-09-18] MEDS: ACETAMINOPHEN 325 MG TAB PO PRN ×2 (04:46→10:32)
[2019-09-18] MEDS ORDERED: MoRPHine SULFATE 4 MG/ML 1 ML CARP\\VIAL IV PRN (04:57)
[2019-09-18] MEDS: SODIUM CHLORIDE 0.9% 1000ML 1,000 ML IV SCH ×2 (06:33→16:05)
[2019-09-18] MEDS: TAMSULOSIN HCL 0.4 MG CAP PO SCH ×2 (09:06→09:29)
--- NOTE | 2019-09-18 09:21 | Urology Consultation ---
Date of Consultation September 18, 2019 Assessment & Plan (1) Renal colic: (2) Hydronephrosis: 29yo M with 3mm distal right ureteral stone, mild hydro Continue IVFs, strain all urine. UA not suspicious for UTI. Allow for diet today then NPO at midnight. KUB in AM. Discussed options for MET vs treatment. Very likely pt will pass stone spontaneously. Please contact our service urgently if patient develops fever >101F, intractable pain or nausea, as this will necessitate urgent surgical intervention. Thank you for the consultation and we will continue to monitor closely with primary service. History of Present Illness Reason for Consultation: stone Requesting Physician: Dr. Stauffer Attending Physician: Luther Stauffer DO History of Present Illness 29yo M with PMHx stones admitted through [facility] ED for complaint of severe right flank pain, nausea. CT reveals 3mm distal right ureteral stone, mild hydro. Bilateral nephrolithiasis. VSS, afebrile. Cr and WBC wnl. Pain and nausea now controlled with IV medications. Some urinary frequency/urgency. Pt has diversion to oral pill taking, strong gag reflex. Pt has passed 3 stones spontaneously in his life. Never previously evaluated by Urology. 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 Required: No Beliefs That Will Affect Care: None Current Living Situation: Other Current Living Situation Comment: lives with girlfriend Other Information That Helps Us Care for You: Yes Feels Safe at Home: Yes Safety Concerns: Feels Safe At This Time Smoking Status: Never smoker Hx Alcohol Use: Yes Hx Substance Use: No Review of Systems Review of Systems: All systems reviewed & are unremarkable except as noted in HPI & below Physical Exam Physical Exam: A&Ox3 RRR abd soft urine clear Results & Data Vital Signs (Past 12 Hours) Vital Signs Temp Pulse Pulse Resp BP BP Pulse Ox 09/18/19 07:47 36.6 C 96 H 20 154/93 H 99 09/17/19 23:20 36.6 C 97 H 15 155/88 H 99 09/17/19 21:35 105 H 19 162/108 H 97 09/17/19 21:33 36.5 C 100 H 18 183/103 H 96 PG Care Time/CCT Total # of Minutes Spent Total Time Spent with Patient: Total time spent is greater than 50% in coordination of care (as documented) at patient's floor/unit and/or counseling patient: (1) Hydronephrosis Hydronephrosis type: unspecified Qualified Code(s): N13.30 - Unspecified hydronephrosis
--- NOTE | 2019-09-18 09:47 | Hospitalist Progress Note ---
Date of Service September 18, 2019 Assessment & Plan (1) Renal colic: 29 yo M with hx renal colic 2/2 kidney stones, admitted for repeat episode of kidney stones. Renal Colic - KUB in ED wnl - Renal ultrasound: 1) Mild right renal hydroureteronephrosis. 2) Several a dditional punctate nonobstructing renal cortical calcifications. - CT abd/pelvis: 1. Obstructing calculus distal right ureter measuring 3 mm. 2. This is slightly proximal to the right ureterovesical junction. 3. Moderate right hydroureteronephrosis. 4. Bilateral nonobstructing additional nephrocalcinosis. - Urology, Dr. Ontiveros consulted for active management. Per conversation with patient, appears that Urology will wait it out today for stone to hopefully pass and if no improvement, will remove stones tomorrow. Will await note and appreciate recommendations. - Patient NPO sips with meds, normal saline 100 mls/hour - Dilaudid .5 mg q2h prn - tamsulosin .4 mg qam - BMP and CBC unimpressive this AM GERD Famotidine 20 mg qam for his home ranitidine which is on shortage here Depression Stable will benefit from outpatient follow up. Pt to follow up with Dr. Saldana as PCP. F/E/N: NPO NSS 100 mls/hour DVT PPx: None ordered based on age and mobility Dispo: Med/Surg Urology consulted, possible intervention tomorrow. Code status: Full Code (2) Hydronephrosis: Supervising Physician Co-Signing Physician Notes I personally examined the patient and verified all peguero points of history and exam, discussed case, and agree with decision making with Dr Tim. He notes that he is actually feeling much better, not that long ago he took Tylenol as well some IV pain medicine and his pain is actually right now as low as it has been and essentially is not there. He is hopeful that he may be passing the stone. Answered all questions to the best my ability. Vitals noted, in general he is awake and alert pleasant no distress. HEENT normocephalic atraumatic mucous membranes moist. Breathing unlabored no accessory muscle use good effort. Skin shows no rashes no pallor or icterus. Ureterolithiasis/intractable painnow improving. Urology plans on cystoscopy if he is not passing the stone, and given his severe and intractable pain this would be reasonable, but given his sudden improvement in the pain hopefully is now passing the stone. Continue watchful waiting and supportive care/pain control. Otherwise as above Subjective 29 yo M otherwise healthy male with hx of kidney stones and FMHx kidney stones in father. Describes these as being the most painful stones he's experienced. Received Tramadol, Morphine 6 mg x 2 and Dilaudid 0.5 m x2 stepwise in order to control pain. Review of Systems Constitutional: + body aches; no fever and no chills Respiratory: no cough, no dyspnea and no pain on inspiration Cardiovascular: no chest pain and no palpitations Genitourinary: + urinary frequency Musculoskeletal: + back pain Physical Exam Constitutional: WD/WN, vitals as above Respiratory: normal respiratory effort, lungs clear to auscultation Cardiovascular: RRR, no murmur, no edema Musculoskeletal: No CVA tenderness bilaterally Results & Data Vital Signs (Past 12 Hours) Vital Signs Temp Pulse Resp BP Pulse Ox 09/18/19 07:47 36.6 C 96 H 20 154/93 H 99 09/17/19 23:20 36.6 C 97 H 15 155/88 H 99 Resident Activity Tracking Resident Involvement: Resident Care Provided Care Provided: Adult Hospital Medicine (1) Hydronephrosis Hydronephrosis type: unspecified Qualified Code(s): N13.30 - Unspecified hydronephrosis
[2019-09-18] MEDS ORDERED: TRAMADOL HCL 50 MG TABLET PO PRN (11:44)
--- NOTE | 2019-09-18 17:16 | Billing Data ---
Coding Level of Care Code 52093 Subseq Hosp Care Lvl 2
[2019-09-18] MEDS: ACETAMINOPHEN 325 MG TAB PO SCH ×2 (17:27→23:36)
[2019-09-19] MEDS: SODIUM CHLORIDE 0.9% 1000ML 1,000 ML IV SCH ×2 (01:38→11:57)
[2019-09-19] MEDS: HYDROmorphone INJ 0.5 MG/0.5 ML SYR IV PRN ×5 (02:28→14:20)
[2019-09-19] MEDS: ONDANSETRON INJ 2 MG/ML 2 ML VIAL IV PRN (04:19)
[2019-09-19] MEDS: ACETAMINOPHEN 325 MG TAB PO SCH ×3 (05:58→17:52)
[2019-09-19] MEDS ORDERED: CIPROFLOXACIN 400 MG/200 ML BAG IV SCH (06:00)
--- NOTE | 2019-09-19 07:32 | XRay Report ---
XR KUB/Abdomen 1 view CLINICAL HISTORY: 29 years-old Male presenting with right ureteral stone visibility. TECHNIQUE: Single supine view of the abdomen was obtained. COMPARISON: CT from 09/17/2019 and plain radiographs from 09/17/2019 and 01/31/2018. FINDINGS: Nonobstructive bowel gas pattern. Mild to moderate stool burden. No gross pneumoperitoneum. Bilateral nephrolithiasis best appreciated on recent CT given the stool burden and bowel gas pattern. The recently demonstrated calculus at the right ureterovesical junction appears to still be present. Osseous structures normal. Lung bases clear. IMPRESSION: 1. Unchanged position of the calculus at the right UVJ. 2. Bilateral nephrolithiasis best appreciated on recent CT given the mild to moderate stool burden. Electronically signed by: Aidan Ta M.D. 09/19/2019 7:31 AM
[2019-09-19 07:34] LABS: Est GFR (African American) 62.2; Est GFR (Non-African American) 53.7; Potassium 3.8 mmol/L (3.5-5.1)
[2019-09-19 07:35] LABS: Calcium 9.3 mg/dl (8.5-10.1); Creatinine Clr Calc Pharmacy 80.6 ml/min
--- NOTE | 2019-09-19 07:35 | Hospitalist Progress Note ---
Date of Service September 19, 2019 Assessment & Plan (1) Renal colic: 29 yo M with hx renal colic 2/2 kidney stones, admitted for repeat episode of kidney stones. Renal Colic - repeat KUB this morning shows stone progress into ureter - Renal ultrasound: 1) Mild right renal hydroureteronephrosis. 2) Several additional punctate nonobstructing renal cortical calcifications. - CT abd/pelvis: 1. Obstructing calculus distal right ureter measuring 3 mm. 2. This is slightly proximal to the right ureterovesical junction. 3. Moderate right hydroureteronephrosis. 4. Bilateral nonobstructing additional nephrocalcinosis. - Urology, Dr. Ontiveros consulted for active management. Per note, will take patient to OR today for cysto, Right retrograde pyelogram and Right stent placement, possible right ureteroscopy, laser lithotripsy, stone basket retrieval, possible ureteral dilation depending on findings. - Patient NPO sips with meds, normal saline 100 mls/hour - Dilaudid .5 mg q2h prn - tamsulosin .4 mg qam - BMP stable this AM GERD Famotidine 20 mg qam for his home ranitidine which is on shortage here Depression Stable will benefit from outpatient follow up. Pt to follow up with Dr. Saldana as PCP. F/E/N: NPO NSS 100 mls/hour DVT PPx: None ordered based on age and mobility Dispo: Med/Surg Urology consulted Code status: Full Code (2) Hydronephrosis: Subjective overnight events: required dilaudid Q2 and this morning says pain was not well controlled with that overnight and continues to be very bothersome. This morning denies any complaints other than continuing pain. Review of Systems Constitutional: no fever, no chills, no body aches and no fatigue Respiratory: no cough and no dyspnea Cardiovascular: no chest pain, no dyspnea and no edema Gastrointestinal: no abdominal pain, no nausea, no vomiting, no constipation and no diarrhea/loose stools Physical Exam Constitutional: WD/WN, vitals as above Respiratory: normal respiratory effort, lungs clear to auscultation Cardiovascular: RRR, no murmur, no edema Results & Data Vital Signs (Past 12 Hours) 09/19/19 Range/Units 06:39 Sodium 137 (136-145) mmol/L Potassium 3.8 (3.5-5.1) mmol/L Chloride 106 (98-107) mmol/L Carbon Dioxide 25 (21-32) mmol/L Anion Gap 6.0 (3-11) BUN 14 (7-18) mg/dl Creatinine 1.69 H D (0.6-1.4) mg/dl Est Cr Clr Drug Dosing 80.6 ml/min Est GFR ( Amer) 62.2 Est GFR (Non-Af Amer) 53.7 BUN/Creatinine Ratio 8.0 L (10-20) Glucose 103 H (70-99) mg/dl Calcium 9.3 (8.5-10.1) mg/dl Vital Signs Temp Pulse Resp BP Pulse Ox 09/19/19 07:27 37.3 C 101 H 18 139/87 96 09/18/19 23:38 37.5 C 09/18/19 23:07 37.8 C H 105 H 18 137/78 96 Resident Activity Tracking Resident Involvement: Resident Care Provided Care Provided: Adult Hospital Medicine (1) Hydronephrosis Hydronephrosis type: unspecified Qualified Code(s): N13.30 - Unspecified hydronephrosis
[2019-09-19] MEDS: TAMSULOSIN HCL 0.4 MG CAP PO SCH (07:36)
--- NOTE | 2019-09-19 09:06 | Urology Progress Note ---
Date of Service September 19, 2019 Assessment & Plan (1) Hydronephrosis: 29yo M with 3mm distal right ureteral stone, mild hydro KUB this AM - stone easily visible, unchanged. Keep NPO, continue IVFs. Discussed options moving forward, ESWL tomorrow vs ureteral stenting today. Pt is motivated for intervention today, does not think he could tolerate another 24 hours in this discomfort. Findings reviewed with Dr. Thompson. Given his persistent renal colic in the context of an obstructing right ureteral stone stone, will proceed with OR for cysto, Right retrograde pyelogram and Right stent placement, possible right ureteroscopy, laser lithotripsy, stone basket retrieval, possible ureteral dilation depending on findings. Risks and benefits to be reviewed with patient by Dr. Thompson. OR notified. Preoperative CXR ordered. Will cover with IV Ciprofloxacin preoperatively. Subjective Pain poorly controlled overnight, requiring IV pain control with modest benefit HR slightly elevated Cr elevated to 1.6 this AM. Slight nausea - improved with zofran. Continues to void spontaneously Review of Systems Review of Systems: All systems reviewed & are unremarkable except as noted in HPI & below Physical Exam Physical Exam: A&Ox3 RRR abd soft, nontender Results & Data Vital Signs (Past 12 Hours) Vital Signs Temp Pulse Resp BP Pulse Ox 09/19/19 07:27 37.3 C 101 H 18 139/87 96 09/18/19 23:38 37.5 C 09/18/19 23:07 37.8 C H 105 H 18 137/78 96 PG Care Time/CCT Total # of Minutes Spent Total Time Spent with Patient: Total time spent is greater than 50% in coordination of care (as documented) at patient's floor/unit and/or counseling patient: (1) Hydronephrosis Hydronephrosis type: unspecified Qualified Code(s): N13.30 - Unspecified hydronephrosis
--- NOTE | 2019-09-19 10:08 | XRay Report ---
XR chest 2V PA/lateral CLINICAL HISTORY: preop COMPARISON STUDY: No previous studies for comparison. FINDINGS: The cardiac and mediastinal contours are normal. There is no evidence of focal pulmonary co nsolidation. There is no evidence of failure. No pleural effusions are visualized.[ IMPRESSION: No active disease in the chest. Electronically signed by: Gonsalo Truong M.D. 09/19/2019 10:07 AM
[2019-09-19] MEDS ORDERED: IOTHALAMATE MEGLUMINE II 17.2% 250 ML VIAL ONE (15:57)
[2019-09-19] MEDS ORDERED: fentaNYL citrate 100 MCG/2 ML VIAL ONE (16:05)
[2019-09-19] MEDS ORDERED: DEXAMETHASONE SOD INJ 4 MG/ML VIAL ONE (16:05)
[2019-09-19] MEDS ORDERED: ONDANSETRON INJ 2 MG/ML 2 ML VIAL ONE (16:05)
[2019-09-19] MEDS ORDERED: MIDAZOLAM HCL 1 MG/ML 2ML VIAL ONE (16:05)
[2019-09-19] MEDS ORDERED: LIDOCAINE HCL 2% 2 ML VIAL/AMP(20MG/ML) INFIL ONE (16:05)
[2019-09-19] MEDS ORDERED: PROPOFOL IV EMULSION 10 MG/ML 20 ML VIAL IV ONE (16:05)
[2019-09-19] MEDS ORDERED: fentaNYL citrate 100 MCG/2 ML VIAL IV PRN (16:06)
[2019-09-19] MEDS ORDERED: ONDANSETRON INJ 2 MG/ML 2 ML VIAL IV PRN (16:06)
[2019-09-19] MEDS ORDERED: LABETALOL HCL IV 5 MG/ML 20ML IV PRN (16:06)
[2019-09-19] MEDS ORDERED: HYDROmorphone INJ 1 MG/ML SYRINGE IV PRN (16:06)
[2019-09-19] MEDS ORDERED: PHENYLEPHRINE 100MCG/ML 5ML SYR IV PRN (16:06)
[2019-09-19] MEDS ORDERED: ePHEDrine sulfate 50 MG/ML AMP IV PRN (16:06)
[2019-09-19] MEDS ORDERED: ATROPINE SULFATE 0.1 MG/ML 10ML SYR IV PRN (16:06)
--- NOTE | 2019-09-19 16:10 | Anesthesiology Consultation ---
Date of Service September 19, 2019 Assessment & Plan (1) Encounter for pre-operative examination: Chart Review Chart Review: Acceptable Risk for Surgery and Patient NOT seen in Pre Admission Testing Consults Requested none History Surgery Operation Date: 09/19/19 14:20 Proposed Procedures p Cystoscopy, Right Retrograde Pyelogram, Right Stent Placement, Possible Ureteroscopy - Ishmael Thompson, DO Height/Weight Height: 5 ft 11 in Weight: 107.9 kg Allergies Allergy/AdvReac Type Severity Reaction Status Date / Time Penicillins Allergy Unknown Verified 09/17/19 18:07 Medications Home Medications Medication Instructions Recorded Confirmed Last Taken ranitidine HCl [Zantac] 150 mg PO HS 09/17/19 09/17/19 09/16/19 Active Medications Generic Name Dose Route Start Last Admin Trade Name Freq PRN Reason Stop Dose Admin Acetaminophen 650 mg 09/18/19 18:00 09/19/19 11:57 Tylenol PO 10/18/19 17:59 650 mg Q6 JAMESON Administration Hydromorphone HCl 0.5 mg 09/18/19 04:58 09/19/19 14:20 Dilaudid IV 10/01/19 21:31 0.5 mg Q2H PRN Administration Severe Pain Sodium Chloride 1,000 mls @ 100 mls/hr 09/17/19 22:00 09/19/19 11:57 Nss 1000ml IV 10/17/19 21:59 100 mls/hr .Q10H JAMESON Administration Ondansetron HCl 4 mg 09/17/19 21:32 09/19/19 04:19 Zofran IV 10/17/19 21:31 4 mg Q6H PRN Administration Nausea Tamsulosin HCl 0.4 mg 09/18/19 09:00 09/19/19 07:36 Flomax PO 10/18/19 08:59 Not Given QAM JAMESON Tramadol HCl 50 mg 09/18/19 11:44 09/18/19 20:27 Ultram PO 10/18/19 11:43 50 mg Q4H PRN Administration Pain NPO Date Last Intake of Fluids: 09/18/19 Time Last Intake of Fluids: 00:01 Date Last Intake of Solids: 09/18/19 Time Last Intake of Solids: 00:01 Past Medical History Medical History Renal colic (Acute) Social History Smoking Status: Never smoker Hx Alcohol Use: Yes alcohol intake frequency: a few times a month Hx Substance Use: No Physical Exam Vital Signs Last Vital Signs Temp 36.7 C 09/19/19 15:33 Pulse 97 H 09/19/19 15:33 Resp 16 09/19/19 15:33 BP 141/87 H 09/19/19 15:33 Pulse Ox 99 09/19/19 15:33 Testing Laboratory Results 09/17/19 18:04 09/19/19 06:39 Urine Color Yellow 09/17/19 18:05 Urine Appearance Clear (Clear) 09/17/19 18:05 Urine pH 5.5 (4.5-7.5) 09/17/19 18:05 Ur Specific [place] 1.026 (1.000-1.030) 09/17/19 18:05 Urine Protein Trace (Negative) H 09/17/19 18:05 Urine Glucose (UA) Negative (Negative) 09/17/19 18:05 Urine Ketones Trace (Negative) H 09/17/19 18:05 Urine Nitrite Negative (Negative) 09/17/19 18:05 Ur Leukocyte Esterase Negative (Negative) 09/17/19 18:05 Urine WBC (Auto) 0 /hpf (0-5) 09/17/19 18:05 Urine RBC (Auto) 0-4 /hpf (0-4) 09/17/19 18:05 U Hyaline Cast (Auto) 1-5 /lpf (0-5) 09/17/19 18:05 U Epithel Cells (Auto) 5-10 /lpf (0-5) H 09/17/19 18:05 Urine Bacteria (Auto) Negative (Negative) 09/17/19 18:05
--- NOTE | 2019-09-19 16:14 | History & Physical Bridge Note ---
Date of Service September 19, 2019 History & Physical Bridge Note I have examined the patient, reviewed the History & Physical and in the interval since the performance of the History & Physical I have noted the following changes of clinical significance: no changes noted
--- NOTE | 2019-09-19 16:39 | Operative Report ---
PG Post Operative Report Pre & Post Diagnosis Distal Right Stone Same Operation Date: 09/19/19 14:20 <No data on this case meets the specified criteria> I identified the patient and participated in the time-out.: Yes Procedure Cystoscopy with right ureteroscopy and stone extraction with retrograde pyelogram and stent placement. Operation Date: 09/19/19 14:20 <No data on this case meets the specified criteria> Surgeon Ishmael Thompson, II, DO Power Grader Operator None Estimated Blood Loss 1 Findings Consistent with Post-Op Diagnosis Stone was grasped and removed. Specimens Stone Fragments Drains 6 Fr Multilength Anesthesia Type General Complications none Disposition Disposition: Recovery Room Indications Patient with bothersome stones. Risks and benefits discussed at length. Description of Procedure Patient was consented and brought back to the operating room. Patient was placed under anesthesia in the supine position and moved to the dorsal lithotomy po sition. Patient was prepped and draped in the regular sterile fashion. A time out was completed. A 30degree Cystoscope was placed into the bladder and the entire bladder was examined. The UO's were identified. The UO was cannulized with a catheter and a retrograde pyelogram was completed. A wire was then placed. The Rigid ureteroscope was taken into the ureter. The stone was identified. It was grasped and removed and sent for analysis. The entire area was once again examined. No residual large fragments or areas of concern were noted. The scope was slowly removed with the wire left in place. Contrast was placed through the scope for a pyelogram to assist in stent placement. The entire ureter was examined as the scope was slowly removed. No obstructions or other areas of concern were noted. With the wire in place, a 6 Fr Double J stent was placed. It was confirmed with fluoroscopy. With the stent in place, the bladder was emptied. The scope was removed. The patient was cleaned, aroused from anesthesia, and transferred to the pacu in stable condition having tolerated the procedure well with no complications. I was present and participated in all aspects of the procedure. The patient will be monitored in the PACU until transferred. I attest to the content of the Intraoperative Record and any orders documented therein. Any exceptions are noted below.
--- NOTE | 2019-09-19 17:14 | Anesthesiology Progress Note ---
Date of Service September 19, 2019 Anesthesia Post Procedure Vital Signs Vital Signs: Temp Pulse Pulse Resp BP BP Pulse Ox 09/19/19 17:05 90 17 129/80 100 09/19/19 16:55 87 18 138/78 100 09/19/19 16:46 36.6 C 93 H 16 121/77 99 09/19/19 15:33 36.7 C 97 H 16 141/87 H 99 09/19/19 07:27 37.3 C 101 H 18 139/87 96 09/18/19 23:38 37.5 C 09/18/19 23:07 37.8 C H 105 H 18 137/78 96 Pain Intensity Right Flank: Pain Intensity: 0 Transfer of Care Handoff Completed per policy Notes Mental Status: alert / awake / arousable Patient Amnestic to Procedure: Yes Nausea / Vomiting: adequately controlled Pain: adequately controlled Airway Patency, RR, SpO2: stable & adequate BP & HR: stable & adequate Hydration State: stable & adequate Anesthetic Complications: no major complications apparent and Pt Satisfied with anesthetic care
--- NOTE | 2019-09-19 18:48 | Discharge Summary ---
Date of Service September 19, 2019 Admission HPI Per Admitting Provider Jl Rojas is a 29 year old man with a past medical history significant for multiple episodes of renal colic, GERD and depression here today with flank pain, he tells me he woke up this morning in his usual state of health and as the morning started began to feel something was off. Had increased urinary frequency and slowly began to develop right sided flank pain and nausea. Pain became much worse as day went on. In past ibuprofen and aleve helped but did not touch it today. On presentation to the emergency department patient has been hypertensive and borderline tachycardic, otherwise vitals have been stable and he is breathing comfortably on room air. His labwork and urinalysis have been fairly unremarkable apart from some mild hyperglycemia. He received toradol and was sent to get a KUB. Toradol did not touch his pain and KUB was negative. Renal U/S was ordered showing mild right sided hydroureteronephrosis. No clear visualization of stone. Morphine worked briefly for him, but pain returned in minutes. He is not on dilaudid .5 mg q2h and is tolerating his pain at about a 4/10. He reports he has been well recently, his last episode with renal colic was back in January 2018. He tells me he stays well hydrated and drinks mostly water but also drinks a large amount of iced tea. He has no PCP currently and hasn't been to medical care in some time. His depression is currently well controlled, he has been on abilify and celexa briefly previously but now is just seeing a counselor. He denies any SI/HI. Admission Exam Per Admitting Provider Constitutional: well developed, well nourished, + acute distress (moderate distress, clearly uncomfortable) and + obese Respiratory: normal respiratory effort, lungs clear to auscultation Cardiovascular: Rate/Rhythm: regular rhythm and + tachycardic Heart Sounds: no click, no gallop, no murmur and no cardiac rub Gastrointestinal (Abdomen): Percussion/Palpation: abdomen soft; abdomen nontender, no hepatosplenomegaly and no abdominal mass Skin: no rashes, warm and dry Principal Diagnosis Nephrolithiasis Discharge Exam Constitutional WD/WN, vitals as above Respiratory normal respiratory effort, lungs clear to auscultation Cardiovascular RRR, no murmur, no edema Gastrointestinal (Abdomen) normal bowel sounds, soft, nontender, no hepatosplenomegaly Musculoskeletal No CVA tenderness Discharge Data Allergies Allergy/AdvReac Type Severity Reaction Status Date / Time Penicillins Allergy Unknown Verified 09/17/19 18:07 Consultations 09/17/19 19:56 ED Decision to Admit Stat 09/17/19 21:32 Consult Case Management - Discharge Planning Routine Consult Urology Routine Procedures Performed Operation Date: 09/19/19 14:20 Actual Procedures p Placement, (Right) - Ishmael Thompson DO s Cystoscopy, Right Retrograde Pyelogram, right stone basket stone extraction, semi-ridged Ureteroscopy (Right) - Ishmael Thompson DO Ordered Studies 09/17/19 17:53 US renal/blad retro comp Stat 09/17/19 21:49 CT abd pelvis wo con Routine 09/19/19 12:30 FL retrograde includes kub Routine Hospital Course (1) Renal colic: 29 yo M with hx renal colic 2/2 kidney stones, admitted for repeat episode of kidney stones. Renal Colic - CT abd/pelvis in ED showed obstructing calculus distal right ureter measuring 3 mm, with moderate right hydroureteronephrosis. Additional bilateral obstructing nephrocalcinosis. Patient was managed conservatively with fluids and IV pain management without noticable improvement. Urology proceeded with intervention and performed a cystoscopy with right retrograde pyelogram, right stone basket retrieval, right ureter stent placement and semi-ridged ureteroscopy. The patient was sent home with 3 days of Cipro for infection coverage. GERD Famotidine 20 mg qam Depression Stable will benefit from outpatient follow up. Pt to follow up with Dr. Ping douglass as PCP. (2) Hydronephrosis: Total Time Total Time Spent Total Time Spent (In Minutes): <30 Discharge Plan Discharge Items Patient Disposition: Home - Self-Care Reason For Visit: RENAL COLIC Discharge Diagnosis: ureterolithiasis Activity: Resume your previous activity Non-emergency contact: Primary Care Provider and Urologist Call non-emergency contact if: you have any medication questions, your symptoms worsen, your pain is not controlled and your temperature is above 101 [place]Ref[place] [facility] [place] [facility] [place] (Please, follow up at [facility]. *A shellfish grower from this office will call you with the appointment information. The office is located at [address] in [place]. If you have any questions, call the office at [phone].) Monroe Saldana MD [Primary Care Provider] - 09/24/19 7:50 am (Please, follow up with Dr. Monroe Saldana on MondaySeptember 24 at 7:50 am. He will be your new primary care provider. The office is located in [address] of [facility], next to this hospital. If you need to change this appointment, call the office at [phone].) Diet: Regular Addtl Attending Provider Instructions: things should continue to improve from here. it's pretty common to have some degree of flank discomfort or occasional crampy pain with a stent in place (some people have some, some people don't; but it's always far better than the stone was) -- if it's bothering you using tylenol or ibuprofen will likely be enough to affect relief at this point. -we'll treat with a 3 day course of cipro to prevent infection - next dose tomorrow morning (as we discussed, while cipro doesn't have the degree of noteriety that levaquin does as far as risk of tendonitis or tendon rupture, it's still theoretically possible, so generally it's givens to avoid heavy lifting or repetitive lifting for a while) -use ondansetron (zofran) up to every 6 hours as needed for nausea (technically this has a QT prolonging interaction with cipro - but since this would likely only be a problem if you were on both at high doses/extended periods of time) -if pain worsens or isn't controlled with what you've got at home, it's worth getting checked out again -while exceedingly unlikely to happen, a fever with a stone would constitute an emergency, so if you spiked a 101F or higher we'd want you seen right away -as long as you feel up to it, you should be fine to return to work on Monday. Pending Studies at Discharge: No Stand-Alone Forms: [facility] [employer], Opioid Pain Management, Work/School Release (Inpt), Smoking Cessation Medications and DC Order Prescriptions: New ciprofloxacin HCl 500 mg tablet 500 mg PO BID Qty: 6 RF: 0 ondansetron 4 mg tablet,disintegrating 4 mg PO Q8H PRN (Reason: nausea and vomiting) 5 Days Qty: 20 RF: 0 Continued ranitidine HCl [Zantac] 150 mg Tablet 150 mg PO HS RF: 0 Discharge Orders: Discharge Order (Routine); Ordered 09/19/19 Ordered By: Luther Baker/Other Patient Handouts: Stents Ureteral, UTI, Kidney Stones Admission Data Admit Date/Time: 09/17/19 20:56 Attending Provider: Luther Stauffer Admit Provider: Monroe Saldana Primary Care Provider: Monroe Saldana Other Providers: Caesar Abdi ; Manpreet Ontiveros Other Interventions: Discharge Summary Assessment (RN) Last Done: 09/19/19 19:45 DC Date/Time DO NOT enter until pt leaves facility: 09/19/19 20:05 Supervising Physician Co-Signing Physician Notes I personally examined the patient and verified all peguero points of history and exam, discussed case, and agree with decision making with Dr Tim. feels considerably better after stenting. Ok for home per discussion with urology. pt feels up to going home / pain controlled and eating well. Vitals noted, in general he is awake and alert pleasant no distress. HEENT normocephalic atraumatic mucous membranes moist. Breathing unlabored no accessory muscle use good effort. Skin shows no rashes no pallor or icterus. Ureterolithiasis/intractable painnow improving - post cysto/stone extraction/stenting. stable for home. 3 days cipro. zofran for nausea (QT risk noted but low given age /short duration) ibuprofen or tylenol for pain. Otherwise as above Resident Activity Tracking Resident Involvement: Resident Care Provided Care Provided: Adult Hospital Medicine
--- NOTE | 2019-09-19 19:09 | Fluoroscopy Report ---
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 FINDINGS: 2 fluoroscopic spot images were submitted for review. Retrograde opacification of the right renal collecting system with placement of a right ureteral stent. The stent appears in good position . IMPRESSION: Fluoroscopy provided for right ureteral stent placement which appears in good position.. Electronically signed by: Zane Givens M.D. 09/19/2019 7:08 PM
--- NOTE | 2019-09-19 19:14 | Billing Data ---
Date of Service September 19, 2019 Coding Level of Care Code D/C Day Management <30 mins
--- NOTE | 2019-09-21 05:13 | Billing Data ---
Date of Service September 21, 2019 Coding Level of Care Code 20660 Initial Inpt Care Lvl 2
[2019-09-24 14:18] LABS: Component 2 DNR
== END 2019-09-19 20:05 | disposition home or self-care (01) | DRG 661 ==
LOC: ED 17:35 → SUATTDRO 20:56 → 3N 20:56